=== PATIENT | female | born 1990 | race African-American/Black ===

== ENCOUNTER 2024-10-19 04:40 | Emergency (ER) | payer MEDICAID ==
[~2024-10-19] VITALS: Ht 154.9 cm; Wt 64.0 kg
[2024-10-19 04:48] VITALS: O2SAT 97
[2024-10-19 05:20] LABS: HEMATOCRIT. 45.7 % (36.0-48.0); HEMOGLOBIN. 15.9 g/dL (12.0-16.0); MEAN CORPUSCULAR HEMOGLOBIN 35.8 pg (28.0-32.0); MEAN CORPUSCULAR HGB CONC 34.7 g/dL (31.0-37.0); MEAN CORPUSCULAR VOLUME 103.2 fL (81.0-99.0); MEAN PLATELET VOLUME 8.7 fl (7.4-10.4); PLATELET 361 x1000/uL (130-400); RED BLOOD CELL COUNT 4.43 mill/uL (4.2-5.4); RED CELL DISTRIBUTION WIDTH 15.2 % (11.6-14.6); WHITE BLOOD COUNT 9.8 x1000/uL (4.5-11.0)
[2024-10-19 05:35] LABS: PROTHROMBIN TIME 10.9 sec (9.6-11.0)
[2024-10-19 05:39] LABS: CALCIUM 11.9 mg/dL (8.7-10.4)
[2024-10-19] MEDS: MORPHINE SULFATE 4 MG/ML INJ (FOR IV/IM USE) IV ONE ×3 (05:42→08:14)
[2024-10-19 05:44] LABS: CREATININE 1.7 mg/dL (0.6-1.0)
[2024-10-19] MEDS: ONDANSETRON HCL 4MG/2ML INJ IV ONE (05:44)
[2024-10-19] MEDS: SODIUM CHLORIDE 0.9% 1,000 ML IV ONE (05:44)
[2024-10-19 06:15] LABS: DIFFERENTIAL COMMENT 1
[2024-10-19 08:00] VITALS: TEMP 36.55848; O2SAT 100
[2024-10-19 08:02] LABS: HCG SCREEN NEGATIVE
[2024-10-19 08:14] VITALS: BP 128/89; PULSE 75; RESP 14
[2024-10-19 12:50] LABS: ANISOCYTOSIS 1+; PLATELET ESTIMATE NORMAL
== END 2024-10-19 11:29 | disposition left against medical advice (07) ==
LOC: EDSEX 04:40 → ER 04:40
DX: R10.9 Unspecified abdominal pain (principal)
CPT/HCPCS: 99285; 74176; 96374; 76830; 76856; 96361; 96375; 80048; 84703; 83690; 85025; 85610; 36415; 96376; J2405; J2270; J7030